=== PATIENT | female | born 1980 | race Caucasian/White ===

== ENCOUNTER → 2020-06-29 09:58 | Outpatient (BNVA) | payer BC, SELFPAY | PROVIDERS: Family Provider Family Medicine; PCP Family Medicine; Visit Provider Nurse Practitioner Family | DX: R50.9 Fever, unspecified (principal); R05 Cough; Z20.828 Contact with and (suspected) exposure to other viral communicable diseases | CPT/HCPCS: 87400; 87635 ==

== ENCOUNTER → 2020-12-08 11:26 | Outpatient (BNVA) | payer BC, SELFPAY | PROVIDERS: Family Provider Family Medicine; PCP Family Medicine; Visit Provider Nurse Practitioner Family | DX: Z20.822 Contact with and (suspected) exposure to COVID-19 (principal) | CPT/HCPCS: 87635 ==

== ENCOUNTER → 2021-03-22 12:15 | Outpatient (BNVA) | payer BC, SELFPAY | PROVIDERS: Family Provider Family Medicine; PCP Family Medicine; Visit Provider Nurse Practitioner | DX: S69.91XA Unspecified injury of right wrist, hand and finger(s), initial encounter (principal); X58.XXXA Exposure to other specified factors, initial encounter | CPT/HCPCS: 73110; 80307 ==

== ENCOUNTER → 2021-10-17 10:05 | Outpatient (BNVA) | payer BC, SELFPAY | PROVIDERS: Family Provider Family Medicine; PCP Family Medicine; Visit Provider Registered Nurse | DX: R19.8 Other specified symptoms and signs involving the digestive system and abdomen (principal); R10.9 Unspecified abdominal pain; K92.0 Hematemesis; K92.1 Melena; F17.210 Nicotine dependence, cigarettes, uncomplicated; Z76.89 Persons encountering health services in other specified circumstances | CPT/HCPCS: 80053; 81000; 85025; 85651; 86140 ==

== ENCOUNTER 2021-12-19 11:14 | Outpatient (CLI) | payer BC, SELFPAY ==
[2021-12-19] MEDS: barium sulfate 450 mL Oral Susp PO (12:18)
--- NOTE | 2021-12-19 13:00 | CT_ITS ---
WS: [id number] CT ABDOMEN AND PELVIS WITH CONTRAST HISTORY: Low abdominal pain with nausea, vomiting and diarrhea. Rectal bleeding. TECHNIQUE: Imaging performed of the abdomen and pelvis with IV contrast. Single phase imaging of the abdomen. Coronal and sagittal reformats are submitted. All CT scans at [facility] use at [address] one of these dose optimization techniques: automated exposure control; mA and/or kV adjustment per patient size (includes targeted exams where dose is matched to clinical indication); or iterative re construction. IV CONTRAST: Omnipaque 350; 95 mL IV. Oral contrast: Yes. DLP: 824.43 mGy.cm COMPARISON: None available. Lower thorax: 4.2 mm nodule at the lingula. Otherwise lung bases are clear. Heart is normal size. No hiatal hernia. Liver/biliary system: Normal size with no intrahepatic dilatation. Gallbladder: Mildly contracted gallbladder. No adjacent inflammation. No bile duct dilatation. Pancreas: Normal size pancreas and pancreatic duct. No adjacent inflammation. Spleen: Normal size spleen. No mass or infarct. Spleen is top normal at 12.7 cm in length. Adrenal glands: Normal. Right kidney: Normal. Left kidney: Normal. Aorta: Very mild atherosclerotic plaque. Normal enhancement of the mesenteric arteries. Lymphadenopathy: None. Free fluid: None. GI tract: Normal stomach and small bowel. Normal appendix. Circumferential mucosal thickening of the distal colon could be due to underdistention. There is not a lot of adjacent inflammation. Abdominal wall: Fat containing umbilical hernia. Pelvis: Bilateral adnexal cystic masses. The largest on the RIGHT measures 8.1 x 3.4 cm. Due to its t ubular appearance this is likely due to a hydrosalpinx. The ovary may be along the posterior aspect o f this tubular structure. There is an additional smaller but slightly tubular and multicystic collect ion and the LEFT adnexa measuring 4.6 x 2.2 cm. No free fluid. Urinary bladder is negative. Bones: Unremarkable. CT/CT abdomen pelvis w con* [id number] IMPRESSION: 1. Bilateral adnexal cystic masses. The largest on the RIGHT measures 8.1 x 3. 4 and is tubular. This may be hydrosalpinx. The smaller cystic mass on the LEFT measures 4.6 and by 2.2 cm and could be a small cluster of ovarian cyst versus a smaller hydrosalpinx. Consider evaluation by transvaginal pelvic ultrasound. 2. Normal appendix. 3. No GI tract obstruction. 4. Mild distal colon mucosal thickening versus nondistention. No adjacent asc ites or free fluid.
[2021-12-19] MEDS: iohexol 350 mg/mL 100 mL Btl IV (13:15)
== END 2021-12-19 11:15 | disposition home or self-care (01) ==
PROVIDERS: Visit Provider Surgery
DX: R10.9 Unspecified abdominal pain (principal); K62.5 Hemorrhage of anus and rectum; R11.2 Nausea with vomiting, unspecified
CPT/HCPCS: 74177

== ENCOUNTER 2022-01-03 09:31 | Day surgery (SDC) | payer BC, SELFPAY ==
[2022-01-01 13:08] VITALS: BMI 25.0
[2022-01-03 09:58] VITALS: BP 103/65; PULSE 59; RESP 16; TEMP 36.2; O2SAT 99
[2022-01-03 10:05] LABS: OR HCG Qualitative Urine Negative (Negative)
[2022-01-03] MEDS: sodium chloride 0.9% 1,000 ML 30 ML IV (10:08)
--- NOTE | 2022-01-03 10:35 | P.HP_ITS ---
Same Day Surgery H&P Indication for Procedure/HPI DATE OF PROCEDURE: January 03, 2022 CHIEF COMPLAINT/INDICATIONFOR SURGICAL PROCEDURE: Abdominal pain, and passing blood PREOP DIAGNOSIS: Abdominal pain, hematochezia and hematemesis PLANNED PROCEDURE: Operation Date: 01/03/22 11:15 Proposed Procedures p 41388 EGD 84081 Colonoscopy R10.9,K62.5(Not Applicable) - Ryan Chong MD s Colonoscopy(Not Applicable) - Ryan Chong MD This is a pleasant 41 years old female patient referred to my practice with history of ongoing abdominal pain particularly in the lower abdomen associated with nausea and vomiting in addition to hematemesis and hematochezia per her description, patient reports that she smokes and she drinks about couple beers a day.? She denies history of colon cancer but she does report family history of ovarian cancer and breast cancer.? Patient describes the pain as being dull and sometimes sharp, not being referred nothing seems to make it better or worse never had endoscopies before. Patient still have her gallbladder and she is being referred to my practice for further evaluation and potential management, no elevated images at this point.She reports History of loose stools. Patient reports history of diarrhea, bloody in nature, has been going on for quite some time.? Patient denies history of recent travels, antibiotics, change in medications, questionable source of water, no history of sick contacts, no history of thyroid disorders.No known history of inflammatory bowel disease. Interim history 01/03/2022 Patient comes today for diagnostic EGD and colonoscopy because of history of abdominal pain and hematemesis and hematochezia. Undergone a CT of the abdomen pelvis per my request and did show; 1.? Bilateral adnexal cystic masses. The largest on the RIGHT measures 8.1 x 3.4 and is tubular. This may be hydrosalpinx. The smaller cystic mass on the LEFT me asures 4.6 and by 2.2 cm and could be a small cluster of ovarian cyst versus a smaller hydrosalpinx. Consider evaluation by transvaginal pelvic ultrasound. 2.? Normal appendix. 3.? No GI tract obstruction. 4. ? Mild distal colon mucosal thickening versus nondistention. No adjacent ascites or free fluid. Patient was educated about the CT scan findings and was encouraged to follow-up with her primary care provider for women's health evaluation. Patient is already aware and she has a gynecology appointment. ROS All systems have been reviewed negative except as for the above or per problem list. Medications/Allergies* Home Medications Medication Instructions Recorded Confirmed Type No Known Home Medications 12/08/20 01/01/22 History Allergies/Adverse Reactions Allergy/AdvReac Type Severity Reaction Status Date / Time No Known Allergies Allergy Verified 01/03/22 10:36 Current Medications: Generic Name Dose Route Start Last Admin Trade Name Freq PRN Reason Stop Dose Admin Sodium Chloride 1,000 mls @ 30 mls/hr 01/03/22 09:45 01/03/22 10:08 Sodium Chloride 0.9% IV 01/04/22 09:44 30 mls/hr .Q24H PERNELL Administration Pertinent History/Comorbid Conditions* Family History (Updated 10/17/21 @ 10:21 by FAISAL Tsang) Heart disease Grandfather Cancer Mother ovarian Sister ovarian sister age 20 Family/Other, Onset Age: 18 Aunt: Breast Social History Smoking and tobacco status: current every day smoker Alcohol intake: never Adopted: No Caregiver/support person: No Lives independently: No service: No Current occupational status: employed Sexually active: Yes Current gender identity: Female Pertinent Exam Findings alert, oriented x 3, regular rate & rhythm and procedure specific exam findings (Abdominal examination nontender nondistended soft) Recommendations Surgery/Procedure today (Diagnostic EGD and colonoscopy) Coding Level of Care Code Acute Profiling Machine Set Up Operator Tool for Tasia Livingston
--- NOTE | 2022-01-03 10:47 | ANES.PREANE2 ---
Pre-Anesthetic Assessment Height/Weight: Height 1.65 m Weight 68.039 kg Temp Pulse Resp BP Pulse Ox O2 Del Method 97.1 F L 59 L 16 103/65 99 01/03/22 09:58 01/03/22 09:58 01/03/22 09:58 01/03/22 09:58 01/03/22 09:58 01/03/22 09:58 Preop Diagnosis: Abdominal pain, hematochezia and hematemesis Operation Date: 01/03/22 11:15 Proposed Procedures p 93682 EGD 42962 Colonoscopy R10.9,K62.5(Not Applicable) - Ryan Chong MD s Colonoscopy(Not Applicable) - Ryan Chong MD Familial anesthetic complications: None Was Beta Tom taken within 24 hours: N/A Was Clonidine taken within 24 hours: N/A Last intake: Intake Last Liquid Date 01/02/22 Last Liquid Time 20:00 Last Solid Date 01/01/22 Last Solid Time 19:00 Social Alcohol (1 - 2 beers a day) and Tobacco Exam alert, oriented x 3, clear to auscultation bilaterally and regular rate & rhythm Airway Mallampati: Class III Dentition: false Pulmonary Asthma (rare inhaler use) Anesthetic Plan ASA status: 2 Anesthesia: MAC Risk of > 500 ml blood loss (7ml/kg in children): No Medications/Allergies Home Medications Medication Instructions Recorded Confirmed Last Taken Type No Known Home Medications 12/08/20 01/01/22 Unknown History Allergies Allergy/AdvReac Type Severity Reaction Status Date / Time No Known Allergies Allergy Verified 01/03/22 10:36 Current Medications Generic Name Dose Route Start Last Admin Trade Name David PRN Reason Stop Dose Admin Sodium Chloride 1,000 mls @ 30 mls/hr 01/03/22 09:45 01/03/22 10:08 Sodium Chloride 0.9% IV 01/04/22 09:44 30 mls/hr .Q24H PERNELL Administration PFSH Anesthesia Family History Grandfather Heart disease Mother Cancer ovarian Sister Cancer ovarian sister age 20 Family/Other Cancer, Onset Age: 18 Aunt: Breast Social History Smoking and tobacco status: current every day smoker Alcohol intake: never Adopted: No Caregiver/support person: No Lives independently: No service: No Current occupational status: employed Sexually active: Yes Current gender identity: Female Female Reproductive History Date of last menstrual period: 12/04/21 Data Anesthesia Cardiac Studies: No Data to Display
--- NOTE | 2022-01-03 12:12 | ANE.PACU2 ---
Inpatient post-anesthesia follow up: Airway intact: Yes Vital signs: Temperature 97.1 F Pulse Rate 59 Respiratory Rate 16 Blood Pressure 103/65 Pulse Oximetry 99 Oxygen Delivery Me thod Room Air Oxygen Flow Rate Fraction of Inspir ed Oxygen Hydration adequate: Yes Nausea and vomiting: No Pain level: 1 Mental status: Baseline
[2022-01-03 12:17] VITALS: BP 132/94; PULSE 78; RESP 18; TEMP 36.3; O2SAT 100
[2022-01-03 12:25] VITALS: BP 127/80; PULSE 74; RESP 18; O2SAT 100
== END 2022-01-03 12:44 | disposition home or self-care (01) ==
PROVIDERS: Anesthesiology; Visit Provider Surgery
PROC: 0DJD8ZZ Inspection of Lower Intestinal Tract, Via Natural or Artificial Opening Endoscopic (ICD-10-PCS; CPT 45378; 2022-01-03 11:15)
PROC: 0DJ08ZZ Inspection of Upper Intestinal Tract, Via Natural or Artificial Opening Endoscopic (ICD-10-PCS; CPT 43235; 2022-01-03 11:15)
DX: K62.5 Hemorrhage of anus and rectum (principal); R10.9 Unspecified abdominal pain; F17.210 Nicotine dependence, cigarettes, uncomplicated; K21.00 Gastro-esophageal reflux disease with esophagitis, without bleeding; K29.50 Unspecified chronic gastritis without bleeding; D12.5 Benign neoplasm of sigmoid colon
CPT/HCPCS: 43239; 45385; 81025; 84703; 88305; J2704; J7030

== ENCOUNTER → 2022-03-01 12:47 | Outpatient (BNVA) | payer BC, SELFPAY | PROVIDERS: Visit Provider Obstetrics & Gynecology | DX: N83.201 Unspecified ovarian cyst, right side (principal) | CPT/HCPCS: 76830 ==

== ENCOUNTER 2022-04-17 10:50 | Observation (INO) | payer BC, SELFPAY ==
[2022-04-15 10:15] VITALS: BMI 23.3
--- NOTE | 2022-04-15 10:26 | P.ANESASSM_ITS ---
Pre-Anesthetic Assessment Height/Weight: Height 1.65 m Weight 63.503 kg Preop Diagnosis: Abdominal pain, hematochezia and hematemesis Operation Date: 04/17/22 08:55 Proposed Procedures p Laparoscopic Right Oophorectomy 46198,N83.8(Right) - Amado Lindsey MD Familial anesthetic complications: None Social Alcohol (weekends) and Tobacco Exam alert, oriented x 3, clear to auscultation bilaterally and regular rate & rhythm Airway Mallampati: Class II Dentition: false Pulmonary Asthma CV/HEM None reported None reported Hepatic None reported GI Gastroesophageal Reflux Disease Metabolic None reported Musc/skel None reported Neuropsych None reported Anesthetic Plan ASA status: 2 Anesthesia: General Risk of > 500 ml blood loss (7ml/kg in children): No Medications/Allergies Home Medications Medication Instructions Recorded Confirmed Last Taken Type pantoprazole 40 mg tablet,delayed 40 mg PO BEDTIME 04/15/22 04/15/22 04/14/22 History release (Protonix) Allergies Allergy/AdvReac Type Severity Reaction Status Date / Time No Known Allergies Allergy Verified 04/15/22 08:24 [facility] Anesthesia Family History Grandfather Heart disease Mother Cancer ovarian Sister Cancer ovarian sister age 20 Family/Other Cancer, Onset Age: 18 Aunt: Breast Grandfather ALS (amyotrophic lateral sclerosis) Denies family history of Colon cancer Pancreatic cancer Social History (Updated 03/11/22 @ 07:59 by Nurys Storm RN) Smoking and tobacco status: current every day smoker Adopted: No Caregiver/support person: No Lives independently: No service: No Current occupational status: employed Sexually active: Yes Current gender identity: Female Female Reproductive History Date of last menstrual period: 03/31/22 Data Anesthesia Cardiac Studies: No Data to Display
[2022-04-15 10:35] LABS: Add Urine Microscopic? NO; Charge for UA Resulting for Rev
[2022-04-15 10:37] LABS: Basophils % 0.4 %; Eosinophils % 0.5 %; Hemoglobin 14.2 g/dL (11.5-15.3); Lymphocytes # 1.9 10^3/uL (0.8-4.8); Lymphocytes % 25.2 %; Mean Corpuscular HGB Conc 32.3 g/dL (30.0-36.0); Mean Corpuscular Hemoglobin 26.8 pg (28.0-34.0); Monocytes # 0.5 10^3/uL (0.2-0.9); Neutrophils # 5.18 10^3/uL (1.8-7.7); Neutrophils % 67.6 %; Nucleated Red Blood Cells % 0 %; Platelet Count 226 10^3/cmm (130-400); Red Cell Distribution Width 13.8 % (12.1-15.1); White Blood Count 7.7 10^3/uL (4.0-10.0)
[2022-04-15 10:42] LABS: OR HCG Qualitative Urine Negative (Negative)
[2022-04-15 10:42] LABS: Bilirubin Urine Neg (Negative); Blood Urine Neg (Negative); Glucose Urine UA Norm (Normal); Ketones Urine Negative (Negative); Leukocyte Esterase Urine Negative (Negative); Nitrate Urine Negative (Negative); Protein Urine Neg (Negative); Specific Gravity, Urine 1.015 (1.005-1.030); Urine Appearance Clear (CLEAR); Urine Color Yellow (Yellow); Urobilinogen Urine Norm (Negative); pH Urine 6 (5-7)
[2022-04-15 10:57] LABS: Alanine Aminotransferase 10 U/L (0-33); Albumin Level 4.1 g/dL (3.5-5.2); Alkaline Phosphatase 71 U/L (35-105); Anion Gap 12.1 (5-19); Aspartate Amino Transferase 17 U/L (0-32); Blood Urea Nitrogen 11 mg/dL (6-20); Calcium 9.4 mg/dL (8.5-10.5); Carbon Dioxide 27 mmol/L (22-29); Chloride 96 mmol/L (98-107); Globulin 2.5 g/dL (1.3-4.6); Glomerular Filtration Rate 91.8 mL/min (90-130); Glucose 97 mg/dL (65-115); Osmolality Calculated 271 mOsm/kg (285-295); Potassium 4.1 mmol/L (3.5-5.1); Sodium 131 mmol/L (136-145); Total Bilirubin 0.3 mg/dL (0.15-1.2); Total Protein 6.6 g/dL (6.6-8.7)
[2022-04-17] VITALS (27 sets, daily range): BP systolic 103–179; BP diastolic 66–137; PULSE 64–95; RESP 5–18; TEMP 36.2–36.7; O2SAT 90–100
[2022-04-17 07:33] LABS: OR HCG Qualitative Urine Negative (Negative)
--- NOTE | 2022-04-17 07:42 | P.ANESUD_ITS ---
Pre-Anesthetic Update Pre-Anesthetic Assessment: Date of Surgery/Procedure: 04/17/22 Preop Jagruti gnosis: Right ovarian mass, pelvic pain Proposed Procedure: Operation Date: 04/17/22 08:55 Proposed Procedures s Right Oophorectomy 56313, 22172, N83.8(Right) - Amado Lindsey MD p Total Abdominal Hysterectomy(Not Applicable) - Amado Lindsey MD Any changes to Pre-Anesthetic Assessment?: No Last Intake: Intake Last Liquid Date 04/16/22 Last Liquid Time 21:00 Last Solid Date 04/16/22 Last Solid Time 21:00 Labs Last 48hrs: Short CBC 04/15/22 Range/Units 10:20 WBC 7.7 (4.0-10.0) 10^3/ uL Hgb 14.2 (11.5-15.3) g/dL Hct 44.0 (37.0-47.0) % MCV 83.0 (81-99) fl Plt Count 226 (130-400) 10^3/c mm Neut % (Auto) 67.6 % Neut # (Auto) 5.18 (1.8-7.7) 10^3/u L BMP 04/15/22 10:20 Sodium 131 L Potassium 4.1 Chloride 96 L Carbon Dioxide 27 BUN 11 Creatinine 0.7 Glucose 97 Calcium 9.4 Liver Function 04/15/22 Range/Units 10:20 Total Bilirubin 0.3 (0.15-1.2) mg/dL AST 17 (0-32) U/L ALT 10 (0-33) U/L Alkaline Phosphata se 71 (35-105) U/L Albumin 4.1 (3.5-5.2) g/dL Urine 04/15/22 Range/Units 10:20 Urine Color Yellow (Yellow) Urine Appearance Clear (CLEAR) Urine pH 6 (5-7) Ur Specific Gravit y 1.015 (1.005-1.030) Urine Protein Neg (Negative) Urine Glucose (UA) Norm (Normal) Urine Ketones Negative (Negative) Urine Nitrate Negative (Negative) Urine Bilirubin Neg (Negative) Ur Leukocyte Amber ase Negative (Negative) Blood Bank 04/15/22 10:19 Blood Type O Positive Rho(D) Type Positive Antibody Screen Negative Vitals: Temperature 97.8 F 04/17/22 07:34 Temperature Source Temporal Artery S can 04/17/22 07:34 Pulse Rate 89 04/17/22 07:34 Pulse Rhythm 04/17/22 07:34 Pulse Strength 3+ Normal 04/17/22 07:34 Respiratory Rate 18 04/17/22 07:34 Blood Pressure 127/87 04/17/22 07:34 Blood Pressure Lorrie n 100 04/17/22 07:34 Pulse Oximetry 99 04/17/22 07:34 Oxygen Delivery Me thod 04/17/22 07:34 Exam: Pre-Anes Outpt Exam: alert, oriented x 3, clear to auscultation bilaterally and regular rate & rhythm Cardiac Studies: No Data to Display
[2022-04-17] MEDS: scopolamine 1.5 Patch 1 PATCH TRANSDERMA (07:44)
[2022-04-17] MEDS: sodium chloride 0.9% 500 ML IV (07:45)
[2022-04-17] MEDS: sodium chloride 0.9% 1,000 ML 30 ML IV (08:30)
--- NOTE | 2022-04-17 08:34 | W.PM.OPSUD ---
Surgery/Procedure H&P Update DATE OF PROCEDURE: April 17, 2022 DATE H&P PERFORMED: 10/18/21 H&P UPDATE INFORMATION: I have reviewed H&P completed within last 30 days, I have examined patient prior to procedure and No changes to prior documentation PREOP DIAGNOSIS: Right ovarian mass, pelvic pain PLANNED PROCEDURE: Operation Date: 04/17/22 08:55 Proposed Procedures s Right Oophorectomy 42785, 42357, N83.8(Right) - Amado Lindsey MD p Total Abdominal Hysterectomy(Not Applicable) - Amado Lindsey MD
[2022-04-17] MEDS: ceFOXitin 2,000 MG in sodium chloride 0.9% (plus) 50 ML 100 MG IV (08:53)
--- NOTE | 2022-04-17 10:50 | P.OP_ITS ---
Operative Report Date of procedure: April 17, 2022 Pre-op diagnosis: Preop Diagnosis Right ovarian mass, pelvic pain Post-op diagnosis: same Post-op findings: Normal size uterus. Normal right ovary. Right hydrosalpinx. Pelvic adhesions. Procedure done: Total vaginal hysterectomy with right salpingo-oophorectomy. Lysis of adhesions. Specimens removed/disposition: Uterus. Right ovary. Right paratubal cyst. Surgeon: Amado Lindsey MD Estimated blood loss (mL): 200 IV fluids (mL): 1,200 Urine output (mL): 200 Complications: None Findings: Right paratubal cyst, pelvic adhesions Procedure: The patient was taken to the operating room, and after adequate level of general anesthesia was achieved, the patient was placed in the Trendelenburg position, prepped and draped in the usual sterile fashion. Subsequently, a Pfannenstiel incision was made and the incision was taken down to the fascia. The fascia was opened up sharply. The fascia was extended to the length of the incision using the Appiah scissors. At this time, the rectus muscles were dissected from the fascia superiorly and inferiorly to the symphysis pubis. The midline rectus muscles were opened sharply and extended superiorly and inferiorly. The peritoneum was visualized, grasped, opened sharply, and extended superiorly and inferiorly towards the bladder. The abdominal contents were packed superiorly away from the operative site using the lap packs. At this time, the pelvic organs were noted. The Faustino self-retaining retracto was palced. Bowel was packed away from the operative site. The fundus of the uterus was then grasped with a triple-tooth tenaculum and retracted out of the pelvic cavity into the abdominal site. At this point, Kari clamps were placed in both right and left adnexal regions. Subsequently, using the [employer] cautery unit, the round ligaments were grasped, cauterized, and dissected. Adhesions were also lised with the Voyant device. The bladder flap was then formed and the bladder flap was pushed away down anteriorly over the lower uterine segment, pushed away from the operative site on both the right and left sides. Subsequently, the posterior leaf of the broad ligament was opened sharply and the Voyant instrument was then placed below the level of the ovary in both the right and left side, care being taken not to damage bowel or uterus and the tubo-ovarian ligament was then grasped, cauterized, and again dissected. Further dissection of the broad ligament was carried down posteriorly towards the uterine vessels. The bladder was pushed inferiorly down towards the vagina. Subsequently, the uterine vessels were then grasped again with the Voyant machine, cauterized, and dissected. The cardinal ligaments were further grasped, dissected, and suture ligated, again with the Voyant machine. At that point, the Voyant machine instrument was stopped and straight Zeppelin clamps were used on the cardinal ligaments down t owards the uterosacral ligaments. The cardinal ligaments were grasped, dissected with a scalpel and then ligated with transfixion sutures with #1 Vicryl suture down to the uterosacral ligaments. The uterosacral ligaments were grasped, dissected, and suture ligated again with #1 Vicryl suture and transfixion sutures. At that time, the bladder had been pushed over the vagina and at this time right-angle Zeppelin clamps were placed on the vagina at the level of the cervix, and using the Earnestine scissors, the cervix was dissected away from the vagina. At this time, the vaginal cuff was then closed using interrupted sutures of #1 Vicryl suture from the midline to each lateral corner. After the good hemostasis had been achieved in the vaginal cuff, both the right and left adnexa was visualized and no more bleeding was noted. The cuff was intact with no bleeding noted. Then the the right paratubal cyst was disected with blunt and sharp disection and was removed without complications. The bladder was visualized and no bleeding was noted. Gelfoam was then placed over the vaginal cuff. The Faustino self-retaining retractor was removed as well as the anterior and inferior blades. The lap packs were removed, and at this time, general closure of the abdomen was carried out. The peritoneum was closed with a 2-0 Vicryl suture and continuous running suture. The fascia was closed using a #1 Vicryl suture from each corner to the midline. Subcutaneous tissue was cauterized. No bleeding was noted. The subcutaneous tissue was then reapproximated using plain sutures and interrupted sutures, and the skin was closed using Insorbs subcuticular absorbable talon. The patient tolerated the procedure well and was transferred to the recovery room in excellent condition. The patient returned to the floor for recovery.
[2022-04-17] MEDS: fentaNYL 50 mcg/mL INJ 2mL IVP (11:19)
[2022-04-17] MEDS: meperidine 50 mg/mL INJ 12.5 MG IVP (11:36)
[2022-04-17] MEDS: ketorolac 30 mg/mL INJ 15 MG IVP (11:59)
--- NOTE | 2022-04-17 12:02 | PC.NURSE ---
patient complaining of abdominal pain. Remains very sleepy. Dr. Lindsey notified. Toradol given per order
[2022-04-17] MEDS: dextrose 5%-lactated ringers 1,000 ML 125 ML IV ×2 (12:40→20:18)
--- NOTE | 2022-04-17 15:02 | ANE.PACU2 ---
Inpatient post-anesthesia follow up: Airway intact: Yes Vital signs: Temperature 98 F Pulse Rate 71 Respiratory Rate 17 Blood Pressure 122/83 Pulse Oximetry 93 Oxygen Delivery Me thod Room Air Oxygen Flow Rate 8 Fraction of Inspir ed Oxygen Hydration adequate: Yes Nausea and vomiting: No Pain level: 1 Mental status: Baseline
[2022-04-17] MEDS: HYDROcodone-acetaminophen 5-325 mg Tablet PO ×2 (16:47→22:46)
[2022-04-17] MEDS: ketorolac 30 mg/mL INJ IVP (19:27)
[2022-04-17] MEDS: pantoprazole DR 40 mg Tablet PO (22:46)
[2022-04-18] MEDS: ketorolac 30 mg/mL INJ IVP (00:42)
[2022-04-18 05:43] VITALS: BP 105/68; PULSE 90; TEMP 36.7; O2SAT 96
[2022-04-18 05:45] LABS: Hemoglobin 9.5 g/dL (11.5-15.3); Mean Corpuscular HGB Conc 31.7 g/dL (30.0-36.0); Mean Corpuscular Hemoglobin 26.5 pg (28.0-34.0); Mean Corpuscular Volume 83.8 fl (81-99); Mean Platelet Volume 9.8 fL (7.4-10.4); Platelet Count 142 10^3/cmm (130-400); Red Blood Count 3.58 10^6/uL (4.1-5.3); Red Cell Distribution Width 14.1 % (12.1-15.1); White Blood Count 8.5 10^3/uL (4.0-10.0)
--- NOTE | 2022-04-18 07:34 | PC.NURSE ---
Scopolamine patch removed per orders from Will, [employer]ING [employer] in surgery r/t patient complaints of blurry vision. Site cleaned with alcohol after removal.
--- NOTE | 2022-04-18 08:56 | PM.OBGYDC ---
Discharge Providers SITE ACQUISITION MANAGER Date of Admission: 04/17/22 10:50 Date of Discharge: 04/18/22 Attending Provider at Admission: Amado Lindsey MD Attending Provider at Discharge: Amado Lindsey MD Reason for Visit Reason for Visit: N83.8 Hospital Course Hospital Course Mrs. Mackey 42-year-old female with a history of right complex adnexal mass, and pelvic pain. Admitted for planned total abdominal hysterectomy with right salpingo-oophorectomy. The procedures were performed without complication. Overnight observation was uneventful. She is afebrile and hemodynamically stable postoperative day 1. Tolerating diet well. Ambulating without difficulty. Counseled regarding pelvic rest for 6 weeks (no sex, no tampons, no vaginal douches). Return to the emergency room if any fever, increased bleeding or pain. Physical Exam Narrative: GA: Alert and oriented ?3. HEENT: WNL. Heart: Regular rate and rhythm. Lungs: Clear to auscultation bilaterally. Abdomen: Bowel sounds present, minimal tenderness, incision clean and dry, no redness, pain or edema. RESPIRATORY TECHNICIAN: No bleeding. Extremities: No edema, no cyanosis, no calves pain. Urinary Catheter Management: Wilkinson: Cath Placed During This Visit: yes, but has since been removed by the nurse Reason for Continuing Indwelling Catheter: Decision to DC Catheter Urinary Catheter Date of Insertion: 04/17/22 Urinary Catheter Time of Insertion: 09:15 Date Urinary Catheter Removed: 04/18/22 Time Urinary Catheter Discontinued: 05:25 History History History 12 Term 2 1 Miscarriages/Ectopic 9 Living Children 2 Discharge Data Studies Completed and Pending Pending at discharge Category Date Time Status Pathology: Surgical [PTH] Routine Pth 04/17/22 11:02 Received Laboratory Results WBC 8.5 10^3/uL (4.0-10.0) 04/18/22 05:21 RBC 3.58 10^6/uL (4.1-5.3) L 04/18/22 05:21 Hgb 9.5 g/dL (11.5-15.3) L 04/18/22 05:21 Hct 30.0 % (37.0-47.0) L 04/18/22 05:21 MCV 83.8 fl (81-99) 04/18/22 05:21 MCH 26.5 pg (28.0-34.0) L 04/18/22 05:21 MCHC 31.7 g/dL (30.0-36.0) 04/18/22 05:21 RDW 14.1 % (12.1-15.1) 04/18/22 05:21 Plt Count 142 10^3/cmm (130-400) 04/18/22 05:21 MPV 9.8 fL (7.4-10.4) 04/18/22 05:21 Neut % (Auto) 67.6 % 04/15/22 10:20 Lymph % (Auto) 25.2 % 04/15/22 10:20 Dent % (Auto) 6.0 % 04/15/22 10:20 Eos % (Auto) 0.5 % 04/15/22 10:20 Baso % (Auto) 0.4 % 04/15/22 10:20 Neut # (Auto) 5.18 10^3/uL (1.8-7.7) 04/15/22 10:20 Lymph # (Auto) 1.9 10^3/uL (0.8-4.8) 04/15/22 10:20 Dent # (Auto) 0.5 10^3/uL (0.2-0.9) 04/15/22 10:20 Eos # (Auto) 0.0 10^3/uL (0.0-0.8) 04/15/22 10:20 Baso # (Auto) 0.0 10^3/uL (0.0-0.1) 04/15/22 10:20 Nucleated RBC % (auto) 0 % 04/15/22 10:20 Nucleated RBCs # 0.0 /100WBC 04/15/22 10:20 Sodium 131 mmol/L (136-145) L 04/15/22 10:20 Potassium 4.1 mmol/L (3.5-5.1) 04/15/22 10:20 Chloride 96 mmol/L (98-107) L 04/15/22 10:20 Carbon Dioxide 27 mmol/L (22-29) 04/15/22 10:20 Anion Gap 12.1 (5-19) 04/15/22 10:20 BUN 11 mg/dL (6-20) 04/15/22 10:20 Creatinine 0.7 mg/dL (0.5-0.9) 04/15/22 10:20 GFR Calculation 91.8 mL/min (90-130) 04/15/22 10:20 Glucose 97 mg/dL (65-115) 04/15/22 10:20 Calculated Osmolality 271 mOsm/kg (285-295) L 04/15/22 10:20 Calcium 9.4 mg/dL (8.5-10.5) 04/15/22 10:20 Total Bilirubin 0.3 mg/dL (0.15-1.2) 04/15/22 10:20 AST 17 U/L (0-32) 04/15/22 10:20 ALT 10 U/L (0-33) 04/15/22 10:20 Alkaline Phosphatase 71 U/L (35-105) 04/15/22 10:20 Total Protein 6.6 g/dL (6.6-8.7) 04/15/22 10:20 Albumin 4.1 g/dL (3.5-5.2) 04/15/22 10:20 Globulin 2.5 g/dL (1.3-4.6) 04/15/22 10:20 Urine Color Yellow (Yellow) 04/15/22 10:20 Urine Appearance Clear (CLEAR) 04/15/22 10:20 Urine pH 6 (5-7) 04/15/22 10:20 Ur Specific [place] 1.015 (1.005-1.030) 04/15/22 10:20 Urine Protein Neg (Negative) 04/15/22 10:20 Urine Glucose (UA) Norm (Normal) 04/15/22 10:20 Urine Ketones Negative (Negative) 04/15/22 10:20 Urine Blood Neg (Negative) 04/15/22 10:20 Urine Nitrate Negative (Negative) 04/15/22 10:20 Urine Bilirubin Neg (Negative) 04/15/22 10:20 Urine Urobilinogen Norm mg/dL (Negative) 04/15/22 10:20 Ur Leukocyte Esterase Negative (Negative) 04/15/22 10:20 Urine HCG, Qual Negative (Negative) 04/17/22 07:24 Blood Type O Positive 04/15/22 10:19 Rho(D) Type Positive 04/15/22 10:19 Antibody Screen Negative 04/15/22 10:19 Vitals Last Vital Signs Temp 98.1 F 04/18/22 05:43 Pulse 90 04/18/22 05:43 Resp 17 04/17/22 13:22 BP 105/68 04/18/22 05:43 Pulse Ox 96 04/18/22 05:43 O2 Del Method 04/18/22 05:43 O2 Flow Rate 8 04/17/22 11:05 Discharge Plan Discharge Patient Disposition: Home Condition: Stable Prescriptions: New hydrocodone-acetaminophen 5-325 mg tablet 1 tab PO Q4H PRN (Reason: pain) Qty: 30 0RF acetaminophen 325 mg capsule 325 mg PO Q4H PRN (Reason: fever or pain) Qty: 60 0RF ferrous sulfate [Iron (ferrous sulfate)] 325 mg (65 mg iron) tablet 325 mg PO BID Qty: 60 0RF docusate sodium [Colace] 100 mg capsule 100 mg PO BID Qty: 60 0RF ibuprofen 800 mg tablet 800 mg PO TID PRN (Reason: pain) Qty: 60 0RF Continued pantoprazole [Protonix] 40 mg tablet,delayed release (DR/EC) 40 mg PO BEDTIME Discharge Orders: Discharge Order (Routine); Ordered 04/18/22 Ordered By: Amado Lindsey Referrals: Amado Lindsey MD [Physician] - 04/30/22 8:45 am (6 week follow up: May 28 at 8:30am) Discharge Diet: Usual diet Discharge Activity: Limit activity as instructed Patient Instructions: Opioid Safety (DC), Salpingectomy (DC), Hysterectomy (DC), OB Discharge Report, OB Food/Drug Interaction Guide, Opioid Safety Activity Restrictions/Additional Instructions: 1. Please call [facility] on next working day to make your post-operative appointment in 2 weeks. 2. Please stay home until you come back to the clinic on first post-operative check up. 3. Please follow instructions on your medications CAREFULLY. 4. If you have abdominal incision, do not cover it unless dressing is necessary because of drainage. OK to shower, but avoid bath. Leave steri-strips until they fall off. If they are still on one week after surgery, you may remove them. 5. If you had vaginal surgery or vaginal repair, Dr. Lindsey may instruct you to take SITZ bath. 6. Yellow, blood tinged odorous vaginal discharge is usually normal after hysterectomy or vaginal surgeries. 7. No sexual intercourse, tampons, or douches until you are completely released from the post-operative care. 8. Avoid constipation by eating right and maybe using some Metamucil or Milk of Magnesia. 9. All prescription refills are given during the working hours. Please do no wait till it runs out. Call the clinic at [phone] before your medication runs out. The clinic will get in touch with your doctor to prescribe medications if necessary. 10. Please remain within 40 mile radius from our hospital because emergencies do happen now and then during the post-operative period. 11. If you have stairs at home, take one step at a time slowly and minimize the number of trips. It helps to stay in one floor for the next few days. No lifting except what you can lift by one hand until you are released from the post-operative care. 12. Driving is discouraged until you are well healed. It may be 3-4 weeks before you feel strong enough to drive. You should be able to turn and look through the rear window without pain and you should be able to push the brake pedal very hard without pain before you drive. No fast rules, but SAFETY should be your primary concern. DO NOT drive if you are on sedating medications such as narcotics. 13. Call the clinic (during working hours) to make urgent appointment or go to the Emergency room, if any of the following occurs: i. Vaginal bleeding becomes heavy, more than a period. ii. Incision becomes red and sore, or drains pus. iii. Your temperature is over 100.4 or you have chill. iv. IV site becomes red and swollen (a little ``knot?? is usually OK) v. Persistent nausea and vomiting vi. Persistent constipation or diarrhea vii. Rash or allergic reaction to medications. Stand Alone Forms: Work/School Release Discharge Attestations SITE ACQUISITION MANAGER Time Spent in Discharge Care*: greater than 30 min Coding Level of Care Code Acute Diabetologist for Tasia Livingston
[2022-04-18] MEDS: HYDROcodone-acetaminophen 5-325 mg Tablet PO (09:11)
[2022-04-18] MEDS: ibuprofen 800 mg tablet PO (09:11)
[2022-04-18] MEDS: docusate sodium 100 mg Capsule PO (09:11)
[2022-04-18 10:41] VITALS: BP 130/86; PULSE 81; RESP 16; TEMP 36.8; O2SAT 99
== END 2022-04-18 10:40 | disposition home or self-care (01) ==
LOC: OBGYN 10:50
PROVIDERS: Anesthesiology; Admitting Provider Obstetrics & Gynecology; Visit Provider Obstetrics & Gynecology
PROC: (CPT 58720; principal; 2022-04-17 08:45)
PROC: 0UT90ZZ Resection of Uterus, Open Approach (ICD-10-PCS; CPT 58150; 2022-04-17 08:45)
DX: D27.0 Benign neoplasm of right ovary (principal); K66.0 Peritoneal adhesions (postprocedural) (postinfection); J45.909 Unspecified asthma, uncomplicated; K21.9 Gastro-esophageal reflux disease without esophagitis; F17.200 Nicotine dependence, unspecified, uncomplicated
CPT/HCPCS: 58262; 36415; 80053; 81003; 81025; 84703; 85025; 85027; 86850; 86900; 88305; 88307; 96374; 96376; C9290; G0378; J0694; J1100; J1170; J1200; J1885; J2175; J2405; J2704; J3010; J3490; J7030; J7040; J7121; Q9968

== ENCOUNTER 2023-03-03 09:35 | Emergency (ER) | payer BC, SELFPAY ==
[2023-03-03 09:54] VITALS: BP 118/81; PULSE 91; RESP 18; TEMP 36.7; O2SAT 98; BMI 23.1
--- NOTE | 2023-03-03 10:24 | CT_ITS ---
WS: [id number] CT ABDOMEN PELVIS TECHNIQUE: Contrast-enhanced CT of the abdomen and pelvis with coronal and sagittal reformatted image s. CLINICAL INFORMATION: abdominal pain COMPARISON: CT 12/19/2021 DLP: 411.[address] scans at [facility] use at least one of these dose optimization techniques: automated e xposure control; mA and/or kV adjustment per patient size (includes targeted exams where dose is matc hed to clinical indication); or iterative reconstruction. FINDINGS: Hepatomegaly. Diffuse fatty infiltration of the liver. Normal portal vein and splenic vein. Normal sp gato. Normal GE junction. Peripheral enhancing LEFT ovarian cyst suspicious for hemorrhagic cyst asia uring 3.3 x 3.1 cm with internal debris. Small amount of free fluid in the pelvis. Tiny bladder cysto raj. Lung bases are well aerated. Subpleural nodule in the lingula measuring 5 mm. Normal spleen. Normal G E junction. Adrenal glands are normal. Normal renal parenchymal enhancement. No hydronephrosis. Nohemy l sigmoid colon. Normal appendix in the RIGHT lower quadrant. No evidence of acute appendicitis. Mild bladder wall thickening with enhancement. Correlation for cystitis. Mild disc bulging L5-S1. IMPRESSION: 1. Suspected hemorrhagic LEFT ovarian cyst measuring 3.3 x 3.1 cm. Small amount of free fluid in the pelvis. 2. Normal appendix in the RIGHT lower quadrant. 3. Diffuse bladder wall thickening with enhancement. Correlation for UTI. 4. Hepatomegaly diffuse fatty filtration of the liver. 5. No other acute findings.
--- NOTE | 2023-03-03 10:25 | W.ED.ABDPA2 ---
HPI - Abdominal Pain General: Chief Complaint: General Medical Stated Complaint: allergic reaction Time Seen by Provider: 03/03/23 09:46 Source: patient Mode of arrival: ambulatory Limitations: no limitations History of Present Illness: Patient is a 42-year-old female presents to ED today with a main complaint of abdominal pain. She states approximately 4 to 5 days ago she was seen at [facility] for concerns of a possible allergic reaction. She states she had a pruritic hive-like rash along with upper abdominal pain and vomiting. Patient was told it was secondary to some viral gastroenteritis from fish. Patient states since then her abdominal pain has persisted and now she feels like her abdomen is bloated and is having dark black stools. She does report taking one dose of Pepto. She denies NSAID use. She does report alcohol use stating she will drink several shots a few times a week. No fevers. No jaundice. No urinary symptoms. MD elicited complaint: abdominal pain Pertinent past history: none Onset (ago): day(s) Pain Consistency: constant Location: Epigastric Severity: moderate Radiation: none Migration to: no migration Relieving factors: nothing Associated Symptoms: Reports bloating and melena; Denies chills, diarrhea, dysuria, fever(s), heartburn, nausea, syncope and vomiting Related Data: Patient : No Review of Systems Const: Denies: fever(s), chills, body aches, fatigue or malaise Eyes: Denies: change in vision or blurry vision Card: Denies: chest pain, palpitations, irregular heart rhythm, lightheadedness, syncope or dyspnea on exertion Resp: Denies: dyspnea, productive cough or pain on inspiration GI: Reports: abdominal pain, bloating and melena; Denies: nausea, vomiting, heartburn or diarrhea : Denies: flank pain, difficulty voiding, dysuria, urinary frequency, urinary urgency or urinary hesitancy Musc: Denies: neck pain, back pain, extremity pain, extremity swelling or joint pain Skin/Breast: Reports: rash and pruritus Neuro: Denies: headache(s), numbness in extremities, weakness in extremities or sensory changes PFS ED PFSH: Medical History Aftercare following surgery of the genitourinary system Psychiatric care Family History Grandfather Heart disease Mother Cancer ovarian Sister Cancer ovarian sister age 20 Family/Other Cancer, Onset Age: 18 Aunt: Breast Grandfather ALS (amyotrophic lateral sclerosis) Denies family history of Colon cancer Pancreatic cancer Social History Smoking and tobacco/nicotine status: current every day tobacco/nicotine user Substance/Drug Use: never Adopted: No Caregiver/support person: No Lives independently: No service: No Current occupational status: employed Sexually active: Yes Do you think of yourself as: Straight/Heterosexual Current gender identity: Female Physical Exam Const: COMMON NORMALS: no acute distress, average body habitus, patient oriented x3, no limitations, alert and well nourished GENERAL APPEARANCE: cooperative ORIENTATION/CONSCIOUSNESS: Yes awake, Yes oriented to person, Yes oriented to place and Yes oriented to time HENMT: COMMON NORMALS: normocephalic and atraumatic HEAD & SCALP: normal to inspection, normocephalic and atraumatic Eye: COMMON NORMALS: no scleral icterus Neck/C-Spine: COMMON NORMALS: full ROM, no lymphadenopathy, supple and no meningeal signs Chest: COMMONS NORMALS: normal inspection of the chest Resp: COMMON NORMALS: normal respiratory effort and clear to auscultation bilaterally AUSCULTATION: clear to auscultation bilaterally Cardio: COMMON NORMALS: regular rate and regular rhythm RATE: regular rate RHYTHM: regular rhythm GI: COMMON NORMALS: Normal to inspection, nondistended, normoactive bowel sounds present, Soft to palpation, No hepatosplenomegaly present and no masses INSPECTION: Yes normal to inspection AUSCULTATION: Yes normoactive bowel sounds PALPATION: Yes Soft to palpation, Yes Tenderness to palpation present (GI) (diffuse), Yes Guarding due to palpation present (GI) (diffuse), No Rigid due to palpation and Yes No hepatosplenomegaly present RECTAL EXAM: heme negative stool : COMMON NORMALS: Yes no CVA tenderness BLADDER/KIDNEY EXAM: Yes no CVA tenderness Back/Pelvis: COMMON NORMALS: no CVA tenderness and thoracic and lumbar spine normal to inspection Extremity: COMMON NORMALS: normal to inspection GENERAL: Yes normal exam except as noted Neuro: LEONOR COMA SCALE: document GCS findings Leonor coma scale eye opening: Spontaneous Dawson coma scale verbal response: Orientated Dawson coma scale motor response: Obey commands Dawson coma scale total score: 15 COMMON NORMALS: patient oriented x3, moves all extremities, no focal motor deficits and no sensory deficits noted SENSORIUM/ORIENTATION: Yes alert, Yes oriented to person, Yes oriented to place and Yes oriented to time MENINGEAL SIGNS: Yes no meningeal signs Skin: COMMON NORMALS: no rashes or lesions noted NARRATIVE SKIN EXAM: I do not appreciate any obvious urticarial rash GENERAL SKIN EXAM: no rashes or lesions noted Course Vital Signs: Vital signs: Vital Signs Temperature 98.0 F 03/03/23 09:54 Pulse Rate 91 03/03/23 09:54 Respiratory Rate 18 03/03/23 09:54 Blood Pressure 118/81 03/03/23 09:54 Pulse Oximetry 98 03/03/23 09:54 Oxygen Delivery Me thod Room Air 03/03/23 09:54 MDM - Abdominal Pain Medical Decision Making Patient here with a main complaint of epigastric pain. Blood work overall is unremarkable. CT scan showing an incidental left hemorrhagic ovarian cyst. I do not feel this most likely is the source of her upper abdominal pain discomfort. She did have some diffuse bladder wall thickening with recommendation for correlation for UTI however her UA is clear. Most of her pain is epigastric. She does report heavy occasional alcohol use. I think it is reasonable to treat her for presumed alcoholic gastritis. She states she does have pantoprazole at home. Recommend she start taking this medication twice a day and I will place her on some Carafate. Recommend follow-up with primary care later this week if symptoms persist. Return to ED precautions given. Of note patient had mentioned dark black stools. Her hemoccult was negative. She does admit to Pepto use. Lab Data 03/03/23 11:03 03/03/23 11:03 Labs/Radiology: Laboratory Results WBC 6.74 10^3/uL (3.29-11.43) 03/03/23 11:03 RBC 4.83 10^6/uL (3.85-5.65) 03/03/23 11:03 Hgb 14.50 g/dL (11.27-16.99) 03/03/23 11:03 Hct 44.3 % (36-47) 03/03/23 11:03 MCV 91.7 fl (85-98) 03/03/23 11:03 MCH 30.0 pg (27-33) 03/03/23 11:03 MCHC 32.7 g/dL (30-55) 03/03/23 11:03 RDW 13.2 % (12.1-15.1) 03/03/23 11:03 Plt Count 179 10^3/cmm (157-399) 03/03/23 11:03 MPV 9.2 fL (7.4-10.4) 03/03/23 11:03 Neut % (Auto) 60.9 % 03/03/23 11:03 Lymph % (Auto) 31.0 % 03/03/23 11:03 Lares % (Auto) 7.1 % 03/03/23 11:03 Eos % (Auto) 0.0 % 03/03/23 11:03 Baso % (Auto) 0.3 % 03/03/23 11:03 Neut # (Auto) 4.10 10^3/uL (1.8-7.7) 03/03/23 11:03 Lymph # (Auto) 2.1 10^3/uL (0.8-4.8) 03/03/23 11:03 Lares # (Auto) 0.5 10^3/uL (0.2-0.9) 03/03/23 11:03 Eos # (Auto) 0.0 10^3/uL (0.0-0.8) 03/03/23 11:03 Baso # (Auto) 0.0 10^3/uL (0.0-0.1) 03/03/23 11:03 Nucleated RBC % (auto) 0 % 03/03/23 11:03 Nucleated RBCs # 0.0 /100WBC 03/03/23 11:03 Sodium 136 mmol/L (136-145) 03/03/23 11:03 Potassium 3.6 mmol/L (3.5-5.1) 03/03/23 11:03 Chloride 103 mmol/L (98-107) 03/03/23 11:03 Carbon Dioxide 25 mmol/L (22-29) 03/03/23 11:03 Anion Gap 11.6 (5-19) 03/03/23 11:03 BUN 8 mg/dL (6-20) 03/03/23 11:03 Creatinine 0.7 mg/dL (0.5-0.9) 03/03/23 11:03 GFR Calculation 91.8 mL/min (90-130) 03/03/23 11:03 Glucose 74 mg/dL (65-115) 03/03/23 11:03 Calculated Osmolality 279 mOsm/kg (285-295) L 03/03/23 11:03 Calcium 8.4 mg/dL (8.5-10.5) L 03/03/23 11:03 Total Bilirubin 0.2 mg/dL (0.15-1.2) 03/03/23 11:03 AST 11 U/L (0-32) 03/03/23 11:03 ALT 8 U/L (0-33) 03/03/23 11:03 Alkaline Phosphatase 60 U/L (35-105) 03/03/23 11:03 Total Protein 5.4 g/dL (6.6-8.7) L 03/03/23 11:03 Albumin 3.6 g/dL (3.5-5.2) 03/03/23 11:03 Globulin 1.8 g/dL (1.3-4.6) 03/03/23 11:03 Lipase 31 U/L (13-60) 03/03/23 11:03 Urine Color Straw (Yellow) 03/03/23 11:35 Urine Appearance Clear (CLEAR) 03/03/23 11:35 Urine pH 5 (5-7) 03/03/23 11:35 Ur Specific [place] 1.005 (1.005-1.030) 03/03/23 11:35 Urine Protein Neg (Negative) 03/03/23 11:35 Urine Glucose (UA) Norm (Normal) 03/03/23 11:35 Urine Ketones Negative (Negative) 03/03/23 11:35 Urine Blood Neg (Negative) 03/03/23 11:35 Urine Nitrate Negative (Negative) 03/03/23 11:35 Urine Bilirubin Neg (Negative) 03/03/23 11:35 Urine Urobilinogen Norm mg/dL (Negative) 03/03/23 11:35 Ur Leukocyte Esterase Negative (Negative) 03/03/23 11:35 All radiology interpretation(s) finalized by discharge Discharge Plan Discharge Patient Disposition: Home Clinical Impression: Hemorrhagic cyst of left ovary Abdominal pain Qualifiers: Abdominal location: epigastric Qualified Code(s): R10.13 - Epigastric pain Condition: Stable Prescriptions: New Carafate 1 gram tablet 1 g PO TID 14 Days Qty: 42 0RF Discharge Orders: Discharge ED (Routine); Ordered 03/03/23 Ordered By: Roberta Jones Patient Instructions: Abdominal Pain (ED) Activity Restrictions/Additional Instructions: As we discussed begin taking the Pantoprazole 40 Mg twice daily in addition to the Carafate prescription I have written you today. Please avoid spicy, acidic foods as well as alcohol and anti-inflammatory medication. Please follow-up with your primary care provider within a week or so to re-evaluate symptoms. You may return to the emergency department for worsening abdominal pain, repetitive episodes of vomiting or diarrhea, fevers, generally feeling worse or unwell, or any other concerns you may have. Coding Level of Care Code ED Director Of Development for Tasia Livingston
[2023-03-03] MEDS: iohexol 350 mg/mL 500 mL Btl (per mL) IV (10:41)
--- NOTE | 2023-03-03 11:07 | PC.NURSE ---
Nurse assumed care at 1100
[2023-03-03 11:11] LABS: Basophils % 0.3 %; Hematocrit 44.3 % (36-47); Lymphocytes # 2.1 10^3/uL (0.8-4.8); Mean Corpuscular HGB Conc 32.7 g/dL (30-55); Mean Corpuscular Volume 91.7 fl (85-98); Mean Platelet Volume 9.2 fL (7.4-10.4); Monocytes # 0.5 10^3/uL (0.2-0.9); Monocytes % 7.1 %; Neutrophils % 60.9 %; Nucleated Red Blood Cells % 0 %; Platelet Count 179 10^3/cmm (157-399); Red Blood Count 4.83 10^6/uL (3.85-5.65); Red Cell Distribution Width 13.2 % (12.1-15.1); White Blood Count 6.74 10^3/uL (3.29-11.43)
[2023-03-03 11:32] LABS: Alanine Aminotransferase 8 U/L (0-33); Albumin Level 3.6 g/dL (3.5-5.2); Alkaline Phosphatase 60 U/L (35-105); Anion Gap 11.6 (5-19); Aspartate Amino Transferase 11 U/L (0-32); Blood Urea Nitrogen 8 mg/dL (6-20); Calcium 8.4 mg/dL (8.5-10.5); Carbon Dioxide 25 mmol/L (22-29); Chloride 103 mmol/L (98-107); Globulin 1.8 g/dL (1.3-4.6); Glomerular Filtration Rate 91.8 mL/min (90-130); Glucose 74 mg/dL (65-115); Lipase 31 U/L (13-60); Osmolality Calculated 279 mOsm/kg (285-295); Potassium 3.6 mmol/L (3.5-5.1); Sodium 136 mmol/L (136-145); Total Bilirubin 0.2 mg/dL (0.15-1.2); Total Protein 5.4 g/dL (6.6-8.7)
[2023-03-03 11:42] LABS: Add Urine Microscopic? NO; Charge for UA Resulting for Rev
[2023-03-03 11:50] LABS: Bilirubin Urine Neg (Negative); Blood Urine Neg (Negative); Glucose Urine UA Norm (Normal); Ketones Urine Negative (Negative); Leukocyte Esterase Urine Negative (Negative); Nitrate Urine Negative (Negative); Protein Urine Neg (Negative); Specific Gravity, Urine 1.005 (1.005-1.030); Urine Appearance Clear (CLEAR); Urine Color Straw (Yellow); Urobilinogen Urine Norm (Negative); pH Urine 5 (5-7)
== END 2023-03-03 12:28 | disposition home or self-care (01) ==
PROVIDERS: Emergency Provider Physician Assistant
DX: N83.202 Unspecified ovarian cyst, left side (principal); R10.13 Epigastric pain; F17.210 Nicotine dependence, cigarettes, uncomplicated
CPT/HCPCS: 74177; 80053; 81003; 83690; 85025; 99285; Q9967

== ENCOUNTER 2023-07-01 11:34 | Outpatient (CLI) | payer OTHER, BC, SELFPAY ==
--- NOTE | 2023-07-01 11:38 | XRR_ITS ---
PROCEDURE INFORMATION: Exam: XR Right Shoulder Exam date and time: 07/01/2023 11:42 AM Age: 43 years old Clinical indication: Injury or trauma; Other: Hurt moving lumber at work; Work related; Sprain or strain; Shoulder; Right; Injury date: 1 month ago; Additional info: S49.91xa - unspecified injury of right shoulder and upper. . . TECHNIQUE: Imaging protocol: Radiologic exam of the right shoulder. Views: 2 or more views. COMPARISON: No relevant prior studies available. FINDINGS: Bones/joints: There is mild degenerative disease of the right acromioclavicular joint. No acute fracture or dislocation. No suspicious osseous lesion. Lungs: Bilateral apical scarring. Soft tissues: Normal. XR/XR shoulder RT min 2V* [id number] IMPRESSION: No acute fracture or dislocation.
== END 2023-07-01 11:35 | disposition home or self-care (01) ==
LOC: RAD 11:34
PROVIDERS: PCP Registered Nurse; Visit Provider Registered Nurse
DX: Z02.6 Encounter for examination for insurance purposes (principal); S49.91XA Unspecified injury of right shoulder and upper arm, initial encounter; X50.0XXA Overexertion from strenuous movement or load, initial encounter; Y92.89 Other specified places as the place of occurrence of the external cause
CPT/HCPCS: 73030

== ENCOUNTER 2023-09-17 06:00 | Outpatient (RCR) | payer OTHER, SELFPAY | END 2023-10-17 23:59 | disposition home or self-care (01) | LOC: WPT 06:00 | PROVIDERS: Visit Provider Orthopaedic Surgery | DX: Z98.890 Other specified postprocedural states (principal) | CPT/HCPCS: 97110; 97162; 97545 ==

== ENCOUNTER 2024-08-15 14:25 | Emergency (ER) | payer SELFPAY ==
[2024-08-15 14:29] VITALS: BP 106/74; PULSE 101; TEMP 36.6; O2SAT 97; BMI 25.0
--- NOTE | 2024-08-15 14:57 | XRR_ITS ---
PROCEDURE INFORMATION: Exam: XR Left Ankle Exam date and time: 08/15/2024 3:14 PM Age: 44 years old Clinical indication: Pain; Ankle; Left TECHNIQUE: Imaging protocol: Radiologic exam of the left ankle. Views: 3 or more views. COMPARISON: CR XR ankle LT min 3V* [id number] 01/23/2019 2:47 AM FINDINGS: Bones/joints: Normal. Soft tissues: Normal. XR/XR ankle LT min 3V* [id number] IMPRESSION: No acute findings.
--- NOTE | 2024-08-15 14:57 | XRR_ITS ---
PROCEDURE INFORMATION: Exam: XR Left Tibia and Fibula Exam date and time: 08/15/2024 3:14 PM Age: 44 years old Clinical indication: Pain; Lower leg; Left TECHNIQUE: Imaging protocol: Radiologic exam of the left tibia and fibula. Views: 2 views. COMPARISON: No relevant prior studies available. FINDINGS: Bones/joints: Normal. Soft tissues: Normal. XR/XR tibia fibula LT 2V [id number] IMPRESSION: No acute findings.
--- NOTE | 2024-08-15 17:55 | USR_ITS ---
PROCEDURE INFORMATION: Exam: US Duplex Left Lower Extremity Veins, Limited Exam date and time: 08/15/2024 6:19 PM Age: 44 years old Clinical indication: Swelling (edema) of limb; Lower extremity, left; Additional info: Swelling, R/O dvt TECHNIQUE: Imaging protocol: Real-time duplex ultrasound of the left extremity with 2-D sharma scale, color Doppler flow and spectral waveform analysis including responses to compression and other maneuvers (when performed) with image documentation. Limited exam focused on the left lower extremity veins. COMPARISON: US transvaginal [id number] 03/01/2022 1:13 PM FINDINGS: Left deep veins: Unremarkable. The common femoral, femoral, proximal profunda femoral and popliteal veins are patent without thrombus. Normal Doppler waveforms. Normal compressibility and/or augmentation response. Superficial veins: Greater saphenous vein at the saphenofemoral junction is patent without thrombus. Soft tissues: Avascular complex fluid collection in the medial lower leg measuring 2.5 x 2.0 x 5.3 cm. US/CV venous duplex [facility] [id number] IMPRESSION: 1. No evidence of deep vein thrombosis. 2. Hematoma in the medial lower leg measuring 2.5 x 2.0 x 5.3 cm.
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
[2024-08-15 18:00] VITALS: BP 110/91; PULSE 77; RESP 16; O2SAT 97
[2024-08-15 19:18] VITALS: BP 124/86; PULSE 80; RESP 16; O2SAT 99
== END 2024-08-15 18:58 | disposition home or self-care (01) ==
PROVIDERS: Emergency Provider Nurse Practitioner Family
DX: S90.32XA Contusion of left foot, initial encounter (principal); S80.12XA Contusion of left lower leg, initial encounter; F17.210 Nicotine dependence, cigarettes, uncomplicated; Y04.2XXA Assault by strike against or bumped into by another person, initial encounter
CPT/HCPCS: 73590; 73610; 93971; 99284

== ENCOUNTER → 2025-01-14 09:16 | Outpatient (BNVA) | payer BC, SELFPAY | PROVIDERS: PCP Registered Nurse; Visit Provider Registered Nurse | DX: Z91.018 Allergy to other foods (principal); D64.9 Anemia, unspecified | CPT/HCPCS: 80053; 82607; 85025; 86003; 86008 ==

== ENCOUNTER 2025-03-09 10:36 | Outpatient (RCR) | payer OTHER, SELFPAY | END 2025-03-18 23:59 | disposition home or self-care (01) | LOC: WPT 10:36 | PROVIDERS: Visit Provider Orthopaedic Surgery | DX: M25.511 Pain in right shoulder (principal) | CPT/HCPCS: 97110; 97112; 97161 ==